=== PATIENT | female | born 1995 | race Caucasian/White ===

== ENCOUNTER 2019-11-13 14:39 | Emergency (ER) | payer OTHER ==
[~2019-11-13] VITALS: Ht 152.4 cm; Wt 68.0 kg
== END 2019-11-13 17:48 | disposition home or self-care (01) ==
LOC: ER 14:39
DX: S70.02XA Contusion of left hip, initial encounter (principal); W18.39XA Other fall on same level, initial encounter; Y93.89 Activity, other specified; Y92.69 Other specified industrial and construction area as the place of occurrence of the external cause; Y99.8 Other external cause status

== ENCOUNTER 2020-01-08 10:14 | Outpatient (CLI) | payer OTHER | END 2020-01-08 10:16 | disposition home or self-care (01) | LOC: RAD 10:14 | PROVIDERS: ATTEND General Practice | DX: M25.561 Pain in right knee (principal) ==

== ENCOUNTER 2025-03-11 11:32 | Emergency (ER) | payer OTHER ==
[~2025-03-11] VITALS: Ht 152.4 cm; Wt 70.3 kg
[2025-03-11] MEDS ORDERED: DIPHENHYDRAMINE HCL 50 MG/ML VIAL 1ML IV ONE (15:00)
[2025-03-11] MEDS ORDERED: FAMOTIDINE/PF 20 MG/2 ML VIAL IV ONE (15:00)
[2025-03-11] MEDS ORDERED: DEXAMETHASONE SODIUM PHOSP/PF 10 MG/ML VIAL IV ONE (15:00)
[2025-03-11] MEDS ORDERED: 0.9 % SODIUM CHLORIDE 500 ML IV ONE (16:00)
[2025-03-11] MEDS ORDERED: MEDROLPACK PO (17:58)
[2025-03-11] MEDS ORDERED: XYZAL5 MG PO (17:58)
== END 2025-03-11 18:08 | disposition home or self-care (01) ==
LOC: ER 11:32
DX: T78.40XA Allergy, unspecified, initial encounter (principal); Z88.6 Allergy status to analgesic agent